=== PATIENT | female | born 1985 | race Caucasian/White ===

== ENCOUNTER 2021-07-14 11:58 | Emergency (ER) | payer OTHER, SELFPAY ==
[2021-07-14 12:06] VITALS: BP 119/69; PULSE 60; RESP 16; TEMP 37.1; O2SAT 99
--- NOTE | 2021-07-14 12:06 | ED.ABDPAIN ---
HPI - Abdominal Pain General Chief Complaint: Abdominal Pain Stated Complaint: abdominal pain Time Seen by Provider: 07/14/21 12:06 Source: patient and RN notes reviewed History of Present Illness HPI narrative: Patient is a 36-year-old female who presents the urgent care with complaints of abdominal pain for the last 3 days. Patient states that she assumed she had gas and has been taking Gas-X without any relief. Patient also reports of pain with lower palpation, walking and even going over bumps in the car. Patient reports of watery diarrhea but denies of any nausea or vomiting. Denies of any vaginal discharge, flank pain. Patient states that the watery diarrhea did start after she had been drinking prune juice. Patient states that she did have a sexual intercourse with a new partner 3 days ago prior to the pain. Denies of any history of STD or pelvic inflammatory. Patient states that she does not have menstrual cycles due to having an IUD. Denies of any fever. No other acute complaints. No acute distress noted. Patient aware of the plan of care. Some parts of this dictation were generated by voice recognition software and may contain typographical and/or grammatical inaccuracies. Related Data Home Medications Medication Instructions Recorded Confirmed sertraline [Zoloft] 50 mg PO DAILY 07/14/21 07/14/21 Allergies Allergy/AdvReac Type Severity Reaction Status Date / Time METOCLOPRAMIDE HCL AdvReac Intermediate Other Uncoded 07/14/21 12:32 Review of Systems Review of Systems: CONSTITUTIONAL: Denies fever, chills, or sweats. EYES: Denies visual changes, redness, or discharge. ENT: Denies rhinorrhea, congestion, sore throat, or otalgia. CARDIOVASCULAR: Denies chest pain, palpitations, or edema. RESPIRATORY: Denies cough or dyspnea. GASTROINTESTINAL: Reports of lower abdominal tenderness without nausea or vomiting. Reports of watery diarrhea GENITOURINARY: Denies dysuria or hematuria. SKIN: Denies rash or itching. MUSCULOSKELETAL: Denies back pain, joint pain, or myalgia. NEUROLOGIC: Denies headache, numbness, or weakness. All other systems reviewed are negative, except as documented in HPI. PMFSH Comments At the time of my signature, I reviewed and agree with the nursing past medical, surgical, social, and family history. There is no relevant family history pertinent to the patient complaint. Exam Narrative: GENERAL: This is a well-nourished, well-developed patient, in no apparent distress. HEAD: normocephalic, atraumatic. EYES: PERRL. Sclera clear/white. Vision is grossly intact. EARS: External ears normal NOSE: External nose normal with no obvious nasal discharge, nares without redness, no rhinorrhea. THROAT: Mucous membranes moist NECK: Neck supple CARDIOVASCULAR: Regular rate and rhythm without murmurs, gallops, or rubs. RESPIRATORY: Clear to auscultation. Breath sounds equal bilaterally. No wheezes, rales, or rhonchi. GASTROINTESTINAL: Abdomen soft, moderate suprapubic and lower abdominal tenderness, nondistended. Bowel sounds are hyperactive. Guarding SKIN: warm, intact with no suspicious lesions or rash, good texture and turgor. NEURO: awake, alert, and oriented to person, place and time. There were no obvious focal neurologic abnormalities. EXTREMITIES: No clubbing, cyanosis, or edema. BACK: Negative bilateral CVA tenderness Course Vital Signs Vital signs: Vital Signs Temperature 98.8 F 07/14/21 12:06 Pulse Rate 60 07/14/21 12:06 Respiratory Rate 16 07/14/21 12:06 Blood Pressure 119/69 07/14/21 12:06 Pulse Oximetry 99 07/14/21 12:06 Temperature 98.8 F 07/14/21 12:06 Pulse Rate 60 07/14/21 12:06 Respiratory Rate 16 07/14/21 12:06 Blood Pressure 119/69 07/14/21 12:06 Pulse Oximetry 99 07/14/21 12:06 Reviewed Transfer Transfered to: Kevin Transfer rationale: Abdominal pain Accepting physician: Dr. Swan [facility] - Abdominal Pain [facility] Narrative Medical d
== END 2021-07-14 13:13 | disposition short-term general hospital (02) ==
PROVIDERS: Emergency Provider Nurse Practitioner Family
DX: R10.9 Unspecified abdominal pain (principal)
CPT/HCPCS: 81003; 99202; G0463

== ENCOUNTER 2021-07-14 13:23 | Emergency (ER) | payer OTHER, SELFPAY ==
--- NOTE | ~2021-07-14 | CT_ITS ---
EXAMINATION: CT abdomen pelvis wo con DATE: 07/14/2021 17:31 INDICATION: Mid abdominal pain. TECHNIQUE: Computed tomography (CT) of the abdomen and pelvis was performed without intravenous contr ast. Automated exposure control and iterative reconstruction technique were employed. The dose-length product was 406.39 mGy-cm. COMPARISON: None. FINDINGS: The visualized portions of the lung bases are clear without pneumonia or pleural effusion. The heart size is normal. No pericardial effusion. There is a 3.0 cm pericardial cyst in right cardio phrenic angle. There is a 1.6 cm mass in right hepatic lobe that contains soft tissue and fat attenua tion. The gallbladder, spleen, pancreas, and adrenal glands and kidneys are normal. A 2 mm calcificat ion in left kidney is likely parenchymal. There is an intrauterine device in expected position. There are no dilated loops of bowel. The appendix is normal. There is a small volume of hemoperitoneum. Th ere is a 4.9 cm hyperdense mass in right adnexa. There are no pathologically enlarged lymph nodes. Th ere is mild lumbar spondylosis. IMPRESSION: 1. 4.9 cm hyperdense mass in right adnexa and small volume of hemoperitoneum, likely a ruptured hemor rhagic cyst. 2. 1.6 cm liver mass containing fat and soft tissue. The differential diagnosis includes adenoma, ang iomyolipoma, and teratoma. Reviewed, dictated and finalized at location A. IMPRESSION: 1. 4.9 cm hyperdense mass in right adnexa and small volume of hemoperitoneum, l ikely a ruptured hemorrhagic cyst. 2. 1.6 cm liver mass containing fat and soft tissue. The differential diagnosis includes adenoma, angiomyolipoma, and teratoma.
[2021-07-14 13:28] VITALS: BP 132/69; PULSE 57; RESP 18; TEMP 36.2; O2SAT 100
[2021-07-14 13:42] LABS: Basophils Absolute Auto 0.1 K/mm3 (0.0-0.1); Basophils Percent Auto 0.9 % (0.2-1.2); Eosinophils Absolute Auto 0.1 K/mm3 (0-0.3); Eosinophils Percent Auto 1.5 % (0-4.4); Hematocrit 33.8 % (37.0-47.0); Hemoglobin 11.4 g/dL (12.0-15.0); Immature Granulocyte Absolute 0.02 K/mm3 (0.00-0.031); Immature Granulocyte Percent A 0.2 % (0-0.5); Lymphocytes Absolute Auto 1.83 K/mm3 (0.9-3.2); Lymphocytes Percent Auto 21.1 % (18.3-44.2); Mean Corpuscular HGB Conc 33.7 g/dl (32-36); Mean Corpuscular Hemoglobin 33.7 pg (26-34); Mean Platelet Volume 11.1 fl (7.4-10.4); Monocytes Absolute Auto 0.6 K/mm3 (0.1-0.6); Monocytes Percent Auto 6.5 % (2.6-8.5); Neutrophils Percent Auto 69.8 % (45.5-73.1); Platelet Count Result 204 k/mm3 (150-375); Red Blood Count 3.38 M/mm3 (4.2-5.4); Red Cell Distribution Width 11.7 % (11.5-14.5); White Blood Count 8.7 K/mm3 (4.5-10.0)
[2021-07-14 14:16] LABS: Add Urine Microscopic? NO; Appearance Urine Clear (Clear); Bilirubin Urine Negative (Negative); Blood Urine Negative (Negative); Color Urine Yellow (Yellow); Glucose Urine UA Negative (Negative); Ketones Urine Negative (Negative); Leukocyte Esterase Ur Negative LEU/UL (Negative); Nitrate Urine Negative (Negative); Protein Urine Negative (Negative); Specific Grav Ur 1.027 (1.001-1.035); Urobilinogen Urine Negative mg/dL (<2.0)
[2021-07-14 14:28] LABS: Alanine Aminotransferase 22 U/L (4-35); Albumin Level 4.3 g/dL (3.5-5.1); Alkaline Phosphatase 49 U/L (38-126); Anion Gap 5 mmol/L (8-16); Aspartate Amino Transferase 29 U/L (14-36); Bilirubin,Total 0.6 mg/dL (0.2-1.3); Blood Urea Nitrogen 10 mg/dL (7-17); Calcium 8.9 mg/dL (8.4-10.2); Carbon Dioxide 26 mmol/L (22-30); Chloride 106 mmol/L (98-107); Estimated CRCL calculation 89 ml/min; Estimated Glomerular Filt Rate > 60; Glucose 92 mg/dL (65-110); Lipase 30 U/L (23-300); Potassium 4.3 mmol/L (3.4-5.0); Sodium 137 mmol/L (137-145)
--- NOTE | 2021-07-14 17:56 | ED.ABDPAIN ---
HPI - Abdominal Pain General Chief Complaint: Abdominal Pain Stated Complaint: abd pain Time Seen by Provider: 07/14/21 15:29 Source: patient Mode of arrival: ambulatory Limitations: no limitations History of Present Illness HPI narrative: 36-year-old female Complains of a 3-day history of abdominal pain Pain was generalized and is now more in the right lower quadrant She notes the pain started after intercourse but since then has gotten worse if she eats Also hurts to walk or go over bumps Appetite is poor, she has not had a fever, no vomiting or diarrhea No hematuria or dysuria or discharge She has had 2 C-sections and she has an IUD and does not have typical usual periods No other medical problems Related Data Home Medications Medication Instructions Recorded Confirmed sertraline [Zoloft] 50 mg PO DAILY 07/14/21 07/14/21 Allergies Allergy/AdvReac Type Severity Reaction Status Date / Time METOCLOPRAMIDE HCL AdvReac Intermediate Other Uncoded 07/14/21 15:30 Review of Systems Review of Systems: All systems reviewed & are unremarkable except as noted in HPI and below Constitutional: Constitutional: Reports no additional constitutional complaints, Denies chills, Denies fever(s) and Denies headache(s) Eyes: Eyes: Reports no additional eye complaints and Denies change in vision ENT: Denies headache(s) and Denies sore throat Cardiovascular: Cardiovascular: Denies chest pain and Denies dyspnea Respiratory: Respiratory: Denies cough and Denies dyspnea Gastrointestinal: Gastrointestinal: Denies abdominal pain, Denies diarrhea and Denies vomiting Genitourinary: Genitourinary: Denies urinary frequency and Denies dysuria Musculoskeletal: Musculoskeletal: Denies deformity, Denies arthralgias, Denies joint swelling and Denies numbness Integumentary/Breasts: Skin/Breast: Denies rash and Denies wounds Neurologic: Denies headache(s), Denies focal weakness and Denies numbness Psychiatric: Psychiatric: Reports no additional psychiatric complaints Endocrine: Endocrine: Reports no additional endocrine complaints Hematologic/Lymphatic: Hematologic/Lymphatic: Reports no additional hematologic/lymphatic complaints Allergic/Immunologic: Allergic/Immunologic: Reports no additional allergic/immunologic complaints PMFSH Social History Social History Gender identity (if verbalized by the patient): Female Exam Const: General: cooperative, no acute distress and alert Orientation/consciousness: patient oriented x3 (alert) HENMT: Head: normal to inspection, normocephalic and atraumatic Ears: external ears normal General nose exam: no epistaxis Eyes: Conjunctivae: conjunctivae normal EOM: EOMs intact bilaterally Neck: Neck: normal visual inspection, supple and no JVD Resp: Effort & Inspection: normal respiratory effort and not labored Auscultation: clear to auscultation bilaterally and other (BS =) Cardio: Rate: regular rate Rhythm: regular rhythm Heart sounds: no murmurs GI: GI Palp: Yes Soft to palpation, Yes Tenderness to palpation present (GI), Yes Guarding due to palpation present (GI) and Yes Rebound tenderness present : General: Yes no CVA tenderness Skin: General skin exam: normal color and no rashes or lesions noted Neuro: General: patient oriented x3 (alert) and moves all extremities Speech: normal speech Extrem: General: normal to inspection and no pedal edema Psych: Affect: normal affect Course Course Emergency Course: Stable H&H compared to her priors from couple years ago CT consistent with ruptured hemorrhagic cyst and patient advised, [employer] follow-up to resolution recommended Vital Signs Vital signs: Vital Signs Temperature 36.2 C L 07/14/21 13:28 Pulse Rate 57 L 07/14/21 13:28 Respiratory Rate 18 07/14/21 13:28 Blood Pressure 132/69 07/14/21 13:28 Pulse Oximetry 100 07/14/21 13:28 Temperature 36.2 C L 07/14/21 13:28 Pulse Rate 57 L
--- NOTE | 2021-07-14 18:41 | PC.NURSE ---
Report given to DHEERAJ Alva
[2021-07-14 19:28] VITALS: BP 122/84; PULSE 64; RESP 16; TEMP 36.7; O2SAT 99
== END 2021-07-14 19:31 | disposition home or self-care (01) ==
PROVIDERS: Emergency Provider Emergency Medicine
DX: N83.201 Unspecified ovarian cyst, right side (principal); Z97.5 Presence of (intrauterine) contraceptive device
CPT/HCPCS: 36415; 74176; 80053; 81003; 81025; 83690; 85025; 99284